=== PATIENT | female | born 1980 | race Caucasian/White ===

== ENCOUNTER 2019-10-09 12:29 | Emergency (ER) | payer MEDICAID ==
[~2019-10-09] VITALS: Ht 157.5 cm; Wt 76.1 kg
[2019-10-09 12:43] VITALS: BP 123/78
[2019-10-09] MEDS ORDERED: BENZ-16 PO (13:16)
[2019-10-09] MEDS ORDERED: CODE120S2 PO (13:16)
== END 2019-10-09 13:31 | disposition home or self-care (01) ==
LOC: ER 12:31
DX: J20.9 Acute bronchitis, unspecified (principal); E11.9 Type 2 diabetes mellitus without complications; Z79.899 Other long term (current) drug therapy
CPT/HCPCS: 93005; 99283